=== PATIENT | male | born 1945 | race Two or more races ===

== ENCOUNTER 2017-09-16 14:07 | Inpatient (IN) | payer OTHER ==
[~2017-09-16] VITALS: Ht 157.5 cm; Wt 63.9 kg
[2017-09-16] MEDS ORDERED: TYLENOL REGULA325 MG PO (15:00)
[2017-09-16] MEDS ORDERED: ASPIR 8181 M1 PO (15:01)
[2017-09-16] MEDS ORDERED: NORVASC5 MG PO (15:01)
[2017-09-16] MEDS ORDERED: DULCOLAX10 MG PR (15:02)
[2017-09-16 15:04] VITALS: BP 134/65
[2017-09-16] MEDS ORDERED: CALCIUM ACETAT667 MG PO (15:04)
[2017-09-16] MEDS ORDERED: B-12500 MC1 SL (15:05)
[2017-09-16] MEDS ORDERED: COLACE100 MG PO (15:06)
[2017-09-16] MEDS ORDERED: LASIX20 MG PO (15:08)
[2017-09-16] MEDS ORDERED: HEPARIN SO5000 UNIT4 IV (15:10)
[2017-09-16] MEDS ORDERED: ZESTRIL10 MG PO (15:11)
[2017-09-16] MEDS ORDERED: LOPRESSOR25 MG PO (15:13)
[2017-09-16] MEDS ORDERED: NEPHROCAPS SOFTG1 MG PO (15:14)
[2017-09-16] MEDS ORDERED: PRAVACHOL80 MG PO (15:16)
[2017-09-16] MEDS ORDERED: FLOMAX0.4 MG PO (15:17)
[2017-09-16 21:00] VITALS: BP 153/68
[2017-09-17 00:06] VITALS: BP 157/80
[2017-09-17 07:02] LABS: HEMATOCRIT 27.5 % (38.0-50.0); HEMOGLOBIN 8.8 G/DL (12.5-16.6); MCH 32.1 PG (29.0-34.0); MCV 100.4 FL (86-99); PLATELET COUNT 256 K/uL (156-360); RBC DIS.WIDTH-CV 15.1 % (11.8-14.6); RBC DIS.WIDTH-SD 55.6 % (39-53); RED BLOOD COUNT 2.74 M/uL (4.00-5.50); WHITE BLOOD COUNT 11.2 K/uL (4.1-10.2)
[2017-09-17 07:05] VITALS: BP 165/86
[2017-09-17 07:29] LABS: CHLORIDE 95 MEQ/L (99-109); CREATININE 11.7 MG/DL (0.6-1.3); GFR ESTIMATE (CALCULATED) 5 mL/min/ (58.99-99999); GLUCOSE 102 mg/dL (70-99); MAGNESIUM 1.8 mg/dl (1.3-2.7); POTASSIUM 3.7 MEQ/L (3.7-5.4); SODIUM 133 MEQ/L (136-147); UREA NITROGEN (BUN) 91 mg/dL (9-23)
[2017-09-17 08:00] VITALS: BP 153/68
[2017-09-17 15:47] VITALS: BP 133/60
[2017-09-17 19:57] VITALS: BP 142/72
[2017-09-17 20:21] LABS: TYPE OF FLUID PD FLUID
[2017-09-17 20:36] LABS: APPEARANCE HAZY/YELLOW
[2017-09-17 21:06] LABS: BODY FLUID RBC'S 1550 /MM^3 (0-100); BODY FLUID WBC'S 515 /MM^3 (0-500)
[2017-09-17 21:14] LABS: BODY FLUID EOSINOPHILS 3 % (0-25); MONONUCLEAR WBC'S 9 %; POLYNUCLEAR WBC'S 88 % (0-25)
[2017-09-17 23:39] VITALS: BP 140/78
[2017-09-18 06:25] LABS: BASOPHIL (%) 0.3 % (0-1); EOSINOPHIL COUNT 0.5 K/uL (0-0.3); HEMATOCRIT 25.7 % (38.0-50.0); HEMOGLOBIN 8.2 G/DL (12.5-16.6); IMMATURE GRANULOCYTE (%) 0.3 % (0.0-0.7); LYMPHOCYTE (%) 12.2 % (15-42); LYMPHOCYTE COUNT 1.4 K/uL (1.0-2.8); MCH 31.3 PG (29.0-34.0); MCHC 31.9 G/DL (30.0-36.0); MCV 98.1 FL (86-99); MONOCYTE (%) 11.7 % (3-12); MONOCYTE COUNT 1.3 K/uL (0-0.8); NEUTROPHIL (%) 71.5 % (45-76); NEUTROPHIL COUNT 8.1 K/uL (1.8-6.4); PLATELET COUNT 232 K/uL (156-360); RBC DIS.WIDTH-CV 14.9 % (11.8-14.6); RBC DIS.WIDTH-SD 53.2 % (39-53); RED BLOOD COUNT 2.62 M/uL (4.00-5.50); WHITE BLOOD COUNT 11.3 K/uL (4.1-10.2)
[2017-09-18 07:00] LABS: CHLORIDE 95 MEQ/L (99-109); CREATININE 10.7 MG/DL (0.6-1.3); GFR ESTIMATE (CALCULATED) 5 mL/min/ (58.99-99999); GLUCOSE 138 mg/dL (70-99); POTASSIUM 3.1 MEQ/L (3.7-5.4); SODIUM 133 MEQ/L (136-147); UREA NITROGEN (BUN) 88 mg/dL (9-23)
[2017-09-18 07:16] LABS: VANCOMYCIN, TROUGH 12.7 MCG/ML (10-20)
[2017-09-18 07:45] VITALS: BP 142/62
[2017-09-18 15:47] VITALS: BP 168/76
[2017-09-18 18:00] LABS: TYPE OF FLUID PD FLUID
[2017-09-18 18:56] LABS: APPEARANCE CLEAR/COLORLESS
[2017-09-18 19:09] LABS: BODY FLUID RBC'S 145 /MM^3 (0-100); BODY FLUID WBC'S 81 /MM^3 (0-500)
[2017-09-18 19:20] LABS: BODY FLUID EOSINOPHILS 12 % (0-25); MONONUCLEAR WBC'S 7 %; POLYNUCLEAR WBC'S 81 % (0-25)
[2017-09-19 00:05] VITALS: BP 144/74
[2017-09-19 07:00] VITALS: BP 134/77
[2017-09-19 07:37] LABS: BASOPHIL (%) 0.4 % (0-1); BASOPHIL COUNT 0.1 K/uL (0-0.1); EOSINOPHIL (%) 3.4 % (0-5); EOSINOPHIL COUNT 0.4 K/uL (0-0.3); HEMATOCRIT 26.1 % (38.0-50.0); HEMOGLOBIN 8.1 G/DL (12.5-16.6); IMMATURE GRANULOCYTE (%) 0.5 % (0.0-0.7); LYMPHOCYTE (%) 11.4 % (15-42); LYMPHOCYTE COUNT 1.5 K/uL (1.0-2.8); MONOCYTE (%) 12.6 % (3-12); MONOCYTE COUNT 1.6 K/uL (0-0.8); NEUTROPHIL (%) 71.7 % (45-76); NEUTROPHIL COUNT 9.2 K/uL (1.8-6.4); PLATELET COUNT 249 K/uL (156-360); RBC DIS.WIDTH-CV 14.9 % (11.8-14.6); RBC DIS.WIDTH-SD 55.6 % (39-53); RED BLOOD COUNT 2.61 M/uL (4.00-5.50); WHITE BLOOD COUNT 12.8 K/uL (4.1-10.2)
[2017-09-19 08:02] LABS: CHLORIDE 97 MEQ/L (99-109); CREATININE 10.6 MG/DL (0.6-1.3); GFR ESTIMATE (CALCULATED) 5 mL/min/ (58.99-99999); GLUCOSE 134 mg/dL (70-99); POTASSIUM 3.7 MEQ/L (3.7-5.4); SODIUM 132 MEQ/L (136-147); UREA NITROGEN (BUN) 74 mg/dL (9-23)
[2017-09-19 15:27] VITALS: BP 170/77
[2017-09-19 19:55] VITALS: BP 172/78
[2017-09-19 23:23] VITALS: BP 130/60
[2017-09-20 06:17] LABS: BASOPHIL (%) 0.5 % (0-1); BASOPHIL COUNT 0.1 K/uL (0-0.1); EOSINOPHIL (%) 3.1 % (0-5); EOSINOPHIL COUNT 0.4 K/uL (0-0.3); HEMATOCRIT 25.3 % (38.0-50.0); HEMOGLOBIN 7.8 G/DL (12.5-16.6); IMMATURE GRANULOCYTE (%) 0.7 % (0.0-0.7); LYMPHOCYTE (%) 7.7 % (15-42); MCH 31.2 PG (29.0-34.0); MCHC 30.8 G/DL (30.0-36.0); MCV 101.2 FL (86-99); MONOCYTE (%) 13.1 % (3-12); MONOCYTE COUNT 1.7 K/uL (0-0.8); NEUTROPHIL (%) 74.9 % (45-76); NEUTROPHIL COUNT 9.5 K/uL (1.8-6.4); PLATELET COUNT 243 K/uL (156-360); RBC DIS.WIDTH-SD 55.3 % (39-53); WHITE BLOOD COUNT 12.7 K/uL (4.1-10.2)
[2017-09-20 06:48] LABS: CHLORIDE 96 MEQ/L (99-109); CREATININE 12.1 MG/DL (0.6-1.3); GFR ESTIMATE (CALCULATED) 4 mL/min/ (58.99-99999); POTASSIUM 4.4 MEQ/L (3.7-5.4); SODIUM 133 MEQ/L (136-147); UREA NITROGEN (BUN) 82 mg/dL (9-23)
[2017-09-20 06:51] LABS: GLUCOSE 85 mg/dL (70-99)
[2017-09-20 10:28] LABS: HEPATITIS B SURFACE ANTIGEN Nonreactive
[2017-09-20 10:40] LABS: HEPATITIS B SURFACE ANTIBODY REACTIVE
[2017-09-20 16:00] VITALS: BP 120/62
[2017-09-20 17:22] VITALS: BP 137/64
[2017-09-20 22:37] VITALS: BP 123/57
[2017-09-21 06:50] VITALS: BP 139/63
[2017-09-21 15:41] VITALS: BP 138/63
[2017-09-21 22:36] VITALS: BP 128/64
[2017-09-22 06:30] LABS: IRON 88 MCG/DL (35-150); TRANSFERRIN (TIBC) 110.1 mg/dL (215-380); TRANSFERRIN SATUR. 80 % (20-55)
[2017-09-22 06:50] VITALS: BP 139/66
[2017-09-22 15:24] VITALS: BP 152/70
[2017-09-22 23:59] VITALS: BP 164/73
[2017-09-23 08:14] VITALS: BP 153/74
[2017-09-23 08:15] LABS: BASOPHIL (%) 0.5 % (0-1); BASOPHIL COUNT 0.1 K/uL (0-0.1); EOSINOPHIL (%) 0.9 % (0-5); EOSINOPHIL COUNT 0.1 K/uL (0-0.3); HEMATOCRIT 27.2 % (38.0-50.0); HEMOGLOBIN 8.2 G/DL (12.5-16.6); IMMATURE GRANULOCYTE (%) 1.7 % (0.0-0.7); LYMPHOCYTE (%) 12.7 % (15-42); LYMPHOCYTE COUNT 1.7 K/uL (1.0-2.8); MCH 31.2 PG (29.0-34.0); MCHC 30.1 G/DL (30.0-36.0); MCV 103.4 FL (86-99); MONOCYTE (%) 13.2 % (3-12); MONOCYTE COUNT 1.7 K/uL (0-0.8); NEUTROPHIL COUNT 9.3 K/uL (1.8-6.4); NRBC (%) 0.2 /100 WBC (0-0); PLATELET COUNT 308 K/uL (156-360); RBC DIS.WIDTH-CV 15.3 % (11.8-14.6); RBC DIS.WIDTH-SD 57.1 % (39-53); RED BLOOD COUNT 2.63 M/uL (4.00-5.50); WHITE BLOOD COUNT 13.1 K/uL (4.1-10.2)
[2017-09-23 08:55] LABS: ALBUMIN 2.7 G/DL (3.2-4.8); CHLORIDE 99 MEQ/L (99-109); CREATININE 12.8 MG/DL (0.6-1.3); GFR ESTIMATE (CALCULATED) 4 mL/min/ (58.99-99999); GLUCOSE 152 mg/dL (70-99); POTASSIUM 4.7 MEQ/L (3.7-5.4); SODIUM 136 MEQ/L (136-147); UREA NITROGEN (BUN) 74 mg/dL (9-23)
[2017-09-23 16:11] VITALS: BP 181/81
[2017-09-23 22:06] VITALS: BP 184/79
[2017-09-24 00:26] VITALS: BP 139/79
[2017-09-24 07:17] VITALS: BP 166/80
[2017-09-24 08:51] LABS: HEMATOCRIT 30.7 % (38.0-50.0); MCH 30.7 PG (29.0-34.0); MCHC 29.3 G/DL (30.0-36.0); MCV 104.8 FL (86-99); NRBC (%) 0.5 /100 WBC (0-0); PLATELET COUNT 296 K/uL (156-360); RBC DIS.WIDTH-CV 15.6 % (11.8-14.6); RBC DIS.WIDTH-SD 57.5 % (39-53); RED BLOOD COUNT 2.93 M/uL (4.00-5.50); WHITE BLOOD COUNT 13.3 K/uL (4.1-10.2)
[2017-09-24 15:28] VITALS: BP 157/87
[2017-09-24 18:44] LABS: HEMATOCRIT 28.4 % (38.0-50.0); HEMOGLOBIN 8.6 G/DL (12.5-16.6); MCHC 30.3 G/DL (30.0-36.0); MCV 105.6 FL (86-99); NRBC (%) 0.4 /100 WBC (0-0); PLATELET COUNT 296 K/uL (156-360); RBC DIS.WIDTH-CV 15.9 % (11.8-14.6); RBC DIS.WIDTH-SD 56.9 % (39-53); RED BLOOD COUNT 2.69 M/uL (4.00-5.50); WHITE BLOOD COUNT 14.5 K/uL (4.1-10.2)
[2017-09-24 18:51] LABS: BASE EXCESS 4.9 mEq/L (-3 to +3); BICARBONATE 29.2 mEq/L (22-26); CARBOXY HGB 0.9 % (0-5); METHEMOGLOBIN 1.2 % (0-1.5); PCO2 41 mm Hg (35-45); pH 7.46 (7.35-7.45)
[2017-09-24 18:52] LABS: COMMENTS - BLOOD GASES A+C+; DEVICE NC; O2 FLOW 4 L/MIN; SITE LR; TOTAL RESP RATE 22 resp/min
[2017-09-24 18:55] LABS: CHLORIDE 100 MEQ/L (99-109); SODIUM 139 MEQ/L (136-147)
[2017-09-24 19:00] VITALS: BP 145/95
[2017-09-24 19:18] LABS: TROP-I INTERPRETATION POSITIVE
[2017-09-24 19:25] LABS: GFR ESTIMATE (CALCULATED) 6 mL/min/ (58.99-99999); GLUCOSE 134 mg/dL (70-99); UREA NITROGEN (BUN) 50 mg/dL (9-23)
[2017-09-24 19:27] LABS: CREATININE 9.3 MG/DL (0.6-1.3)
[2017-09-24 19:55] LABS: TROPONIN-I 5.59 ng/mL (0.0-0.30)
[2017-09-24] MEDS ORDERED: PLAVIX75 MG PO (20:22)
[2017-09-24 22:00] VITALS: BP 164/73
[2017-09-24 22:26] LABS: INTER. NORMALIZED RATIO 1.3
[2017-09-24 22:29] LABS: PTT 27.8 SEC (25-37)
[2017-09-25] VITALS: BP 157/98
[2017-09-25 04:00] VITALS: BP 136/70
[2017-09-25 05:32] LABS: BASOPHIL (%) 0.2 % (0-1); EOSINOPHIL (%) 0 % (0-5); HEMATOCRIT 29.2 % (38.0-50.0); HEMOGLOBIN 8.7 G/DL (12.5-16.6); IMMATURE GRANULOCYTE (%) 2.6 % (0.0-0.7); LYMPHOCYTE COUNT 0.7 K/uL (1.0-2.8); MCH 31.6 PG (29.0-34.0); MCHC 29.8 G/DL (30.0-36.0); MCV 106.2 FL (86-99); MONOCYTE (%) 2.5 % (3-12); MONOCYTE COUNT 0.3 K/uL (0-0.8); NEUTROPHIL (%) 89.7 % (45-76); NEUTROPHIL COUNT 11.9 K/uL (1.8-6.4); NRBC (%) 0.7 /100 WBC (0-0); PLATELET COUNT 295 K/uL (156-360); RBC DIS.WIDTH-CV 16.5 % (11.8-14.6); RBC DIS.WIDTH-SD 58.5 % (39-53); RED BLOOD COUNT 2.75 M/uL (4.00-5.50); WHITE BLOOD COUNT 13.3 K/uL (4.1-10.2)
[2017-09-25 05:55] LABS: TROP-I INTERPRETATION POSITIVE; TROPONIN-I 5.36 ng/mL (0.0-0.30)
[2017-09-25 06:00] LABS: ALBUMIN 2.8 G/DL (3.2-4.8); CHLORIDE 100 MEQ/L (99-109); GFR ESTIMATE (CALCULATED) 5 mL/min/ (58.99-99999); GLUCOSE 136 mg/dL (70-99); PHOSPHORUS 4.5 mg/dL (2.5-4.9); POTASSIUM 5.6 MEQ/L (3.7-5.4); SODIUM 139 MEQ/L (136-147); UREA NITROGEN (BUN) 55 mg/dL (9-23)
[2017-09-25 06:01] LABS: CREATININE 10.9 MG/DL (0.6-1.3)
[2017-09-25 08:00] VITALS: BP 170/77
[2017-09-25 11:48] LABS: TROP-I INTERPRETATION POSITIVE; TROPONIN-I 5.62 ng/mL (0.0-0.30)
[2017-09-25 13:00] VITALS: BP 139/62
[2017-09-25 16:36] VITALS: BP 146/74
[2017-09-25 19:01] LABS: HEMATOCRIT 35.8 % (38.0-50.0); HEMOGLOBIN 10.9 G/DL (12.5-16.6); MCV 101.7 FL (86-99)
[2017-09-25 20:00] VITALS: BP 140/78
[2017-09-26] VITALS (8 sets, daily range): BP systolic 117–172; BP diastolic 68–110
[2017-09-26 09:40] LABS: BASOPHIL (%) 0.5 % (0-1); BASOPHIL COUNT 0.1 K/uL (0-0.1); EOSINOPHIL (%) 0.7 % (0-5); EOSINOPHIL COUNT 0.2 K/uL (0-0.3); HEMATOCRIT 34.7 % (38.0-50.0); HEMOGLOBIN 10.5 G/DL (12.5-16.6); IMMATURE GRANULOCYTE (%) 2.7 % (0.0-0.7); MCH 31.3 PG (29.0-34.0); MCHC 30.3 G/DL (30.0-36.0); MCV 103.6 FL (86-99); MONOCYTE (%) 11.1 % (3-12); MONOCYTE COUNT 2.4 K/uL (0-0.8); NEUTROPHIL COUNT 15.3 K/uL (1.8-6.4); NRBC (%) 0.4 /100 WBC (0-0); PLATELET COUNT 317 K/uL (156-360); RBC DIS.WIDTH-SD 67.1 % (39-53); WHITE BLOOD COUNT 21.6 K/uL (4.1-10.2)
[2017-09-26 09:41] LABS: RED BLOOD COUNT 3.35 M/uL (4.00-5.50)
[2017-09-26 10:02] LABS: TROP-I INTERPRETATION POSITIVE; TROPONIN-I 7.38 ng/mL (0.0-0.30)
[2017-09-26 11:06] LABS: CHLORIDE 96 MEQ/L (99-109); GLUCOSE 105 mg/dL (70-99); SODIUM 134 MEQ/L (136-147); UREA NITROGEN (BUN) 42 mg/dL (9-23)
[2017-09-26 11:07] LABS: CREATININE 8.1 MG/DL (0.6-1.3); GFR ESTIMATE (CALCULATED) 7 mL/min/ (58.99-99999); POTASSIUM 4.3 MEQ/L (3.7-5.4)
[2017-09-27] VITALS: BP 125/84
[2017-09-27 04:00] VITALS: BP 155/78
[2017-09-27 04:29] LABS: HEMATOCRIT 31.5 % (38.0-50.0); HEMOGLOBIN 9.9 G/DL (12.5-16.6); MCH 31.9 PG (29.0-34.0); MCHC 31.4 G/DL (30.0-36.0); MCV 101.6 FL (86-99); NRBC (%) 0.5 /100 WBC (0-0); PLATELET COUNT 295 K/uL (156-360); RBC DIS.WIDTH-CV 19.9 % (11.8-14.6); RBC DIS.WIDTH-SD 64.2 % (39-53); WHITE BLOOD COUNT 18.3 K/uL (4.1-10.2)
[2017-09-27 04:47] LABS: TROP-I INTERPRETATION POSITIVE
[2017-09-27 04:49] LABS: TROPONIN-I 6.79 ng/mL (0.0-0.30)
[2017-09-27 06:59] LABS: BASOPHIL (%) 0.4 % (0-1); BASOPHIL COUNT 0.1 K/uL (0-0.1); EOSINOPHIL (%) 1.1 % (0-5); EOSINOPHIL COUNT 0.2 K/uL (0-0.3); IMMATURE GRANULOCYTE (%) 2.7 % (0.0-0.7); LYMPHOCYTE (%) 13.6 % (15-42); LYMPHOCYTE COUNT 2.5 K/uL (1.0-2.8); MONOCYTE (%) 11.7 % (3-12); MONOCYTE COUNT 2.1 K/uL (0-0.8); NEUTROPHIL (%) 70.5 % (45-76); NEUTROPHIL COUNT 12.7 K/uL (1.8-6.4)
[2017-09-27 07:00] VITALS: BP 155/78
[2017-09-27 07:22] LABS: ALBUMIN 2.8 G/DL (3.2-4.8); CHLORIDE 100 MEQ/L (99-109); CREATININE 9.6 MG/DL (0.6-1.3); GFR ESTIMATE (CALCULATED) 6 mL/min/ (58.99-99999); GLUCOSE 121 mg/dL (70-99); PHOSPHORUS 3.5 mg/dL (2.5-4.9); POTASSIUM 4.7 MEQ/L (3.7-5.4); SODIUM 137 MEQ/L (136-147); UREA NITROGEN (BUN) 53 mg/dL (9-23)
[2017-09-27 12:27] VITALS: BP 158/73
[2017-09-27 13:26] LABS: INTER. NORMALIZED RATIO 1.1
[2017-09-27 13:28] LABS: PTT 63.2 SEC (25-37)
[2017-09-27 16:00] VITALS: BP 138/70
[2017-09-27 20:00] VITALS: BP 134/61
[2017-09-28] VITALS (7 sets, daily range): BP systolic 138–183; BP diastolic 50–79
[2017-09-29 04:00] VITALS: BP 154/71
[2017-09-29 05:20] LABS: ALBUMIN 2.8 g/dL (3.2-4.8)
[2017-09-29 05:21] LABS: CHLORIDE 103 mEq/L (99-109); POTASSIUM 4.6 mEq/L (3.7-5.4); SODIUM 138 mEq/L (136-147)
[2017-09-29 05:25] LABS: GLUCOSE 89 mg/dL (70-99)
[2017-09-29 05:26] LABS: CREATININE 9.3 mg/dL (0.6-1.3); GFR ESTIMATE (CALCULATED) 6 mL/min/ (58.99-99999); PHOSPHORUS 3.4 mg/dL (2.5-4.9)
[2017-09-29 05:27] LABS: UREA NITROGEN (BUN) 41 mg/dL (9-23)
[2017-09-29 07:30] VITALS: BP 153/72
[2017-09-29 11:37] VITALS: BP 156/72
[2017-09-29 15:12] VITALS: BP 143/66
[2017-09-29 19:08] VITALS: BP 153/67
[2017-09-30 00:48] VITALS: BP 162/71
[2017-09-30 04:12] VITALS: BP 163/72
[2017-09-30 05:31] LABS: HEMOGLOBIN 10.8 G/DL (12.5-16.6); MCH 30.9 PG (29.0-34.0); MCV 103.2 FL (86-99); NRBC (%) 0.4 /100 WBC (0-0); PLATELET COUNT 282 K/uL (156-360); RBC DIS.WIDTH-CV 20.2 % (11.8-14.6); RBC DIS.WIDTH-SD 75.9 % (39-53); RED BLOOD COUNT 3.49 M/uL (4.00-5.50); WHITE BLOOD COUNT 14.2 K/uL (4.1-10.2)
[2017-09-30 07:32] LABS: ALBUMIN 2.7 G/DL (3.2-4.8); CHLORIDE 100 MEQ/L (99-109); GFR ESTIMATE (CALCULATED) 5 mL/min/ (58.99-99999); GLUCOSE 90 mg/dL (70-99); PHOSPHORUS 3.5 mg/dL (2.5-4.9); POTASSIUM 4.7 MEQ/L (3.7-5.4); SODIUM 137 MEQ/L (136-147); UREA NITROGEN (BUN) 49 mg/dL (9-23)
[2017-09-30 07:33] LABS: CREATININE 11.1 MG/DL (0.6-1.3)
[2017-09-30 08:00] VITALS: BP 160/70
[2017-09-30 10:02] LABS: INTER. NORMALIZED RATIO 1.1
[2017-09-30 10:10] LABS: PTT 28.9 SEC (25-37)
[2017-09-30 10:44] LABS: CHLORIDE 100 MEQ/L (99-109); GFR ESTIMATE (CALCULATED) 5 mL/min/ (58.99-99999); GLUCOSE 94 mg/dL (70-99); POTASSIUM 4.6 MEQ/L (3.7-5.4); SODIUM 138 MEQ/L (136-147); UREA NITROGEN (BUN) 49 mg/dL (9-23)
[2017-09-30 11:31] VITALS: BP 162/69
[2017-09-30 20:27] VITALS: BP 150/67
[2017-09-30 23:48] VITALS: BP 150/70
[2017-10-01 04:16] VITALS: BP 168/74
[2017-10-01 06:09] LABS: ALBUMIN 2.7 G/DL (3.2-4.8); CHLORIDE 101 MEQ/L (99-109); CREATININE 13.1 MG/DL (0.6-1.3); GFR ESTIMATE (CALCULATED) 4 mL/min/ (58.99-99999); GLUCOSE 69 mg/dL (70-99); PHOSPHORUS 4.6 mg/dL (2.5-4.9); POTASSIUM 5.3 MEQ/L (3.7-5.4); SODIUM 138 MEQ/L (136-147); UREA NITROGEN (BUN) 57 mg/dL (9-23)
[2017-10-01 07:11] VITALS: BP 159/71
[2017-10-01 07:50] LABS: HEMATOCRIT 33.2 % (38.0-50.0); HEMOGLOBIN 10.3 G/DL (12.5-16.6); MCH 32.1 PG (29.0-34.0); MCV 103.4 FL (86-99); PLATELET COUNT 265 K/uL (156-360); RBC DIS.WIDTH-CV 20.2 % (11.8-14.6); RBC DIS.WIDTH-SD 76.4 % (39-53); RED BLOOD COUNT 3.21 M/uL (4.00-5.50); WHITE BLOOD COUNT 10.5 K/uL (4.1-10.2)
[2017-10-01 08:06] LABS: BASOPHIL (%) 0.8 % (0-1); BASOPHIL COUNT 0.1 K/uL (0-0.1); EOSINOPHIL (%) 2.1 % (0-5); EOSINOPHIL COUNT 0.2 K/uL (0-0.3); IMMATURE GRANULOCYTE (%) 0.8 % (0.0-0.7); LYMPHOCYTE (%) 17.2 % (15-42); LYMPHOCYTE COUNT 1.8 K/uL (1.0-2.8); MONOCYTE (%) 11.9 % (3-12); MONOCYTE COUNT 1.3 K/uL (0-0.8); NEUTROPHIL (%) 67.2 % (45-76); NEUTROPHIL COUNT 7.1 K/uL (1.8-6.4)
[2017-10-01] MEDS ORDERED: AMLODIPINE BESY10 MG PO (11:38)
[2017-10-01] MEDS ORDERED: AUGMENTIN500 MG PO (11:38)
[2017-10-01] MEDS ORDERED: LOPRESSOR50 MG PO (11:38)
[2017-10-01 11:44] VITALS: BP 139/67
== END 2017-10-01 16:55 | disposition home health service (06) | DRG 981 ==
LOC: SDC 14:07 → 2SOUTH 18:26 → 4EAST 18:26 → 5EAST 18:26 → ENRESERV 18:27 → 5EAST 19:57 → ENRESERV 09-24 18:49 → 4WEST 09-24 18:57 → ENRESERV 09-24 18:58 → 4WEST 09-24 18:59 → ENRESERV 09-28 09:51 → 4EAST 09-28 14:25
PROVIDERS: Family Medicine; Hospitalist; Internal Medicine Nephrology; Physician Assistant; Physician Assistant Medical; Surgery
PROC: 0WWG40Z Revision of Drainage Device in Peritoneal Cavity, Percutaneous Endoscopic Approach (ICD-10-PCS; principal; 2017-09-16)
PROC: 3E1M39Z Irrigation of Peritoneal Cavity using Dialysate, Percutaneous Approach (ICD-10-PCS; 2017-09-17)
PROC: 02HV33Z Insertion of Infusion Device into Superior Vena Cava, Percutaneous Approach (ICD-10-PCS; 2017-09-19)
PROC: 0WPG03Z Removal of Infusion Device from Peritoneal Cavity, Open Approach (ICD-10-PCS; 2017-09-19)
PROC: B5181ZA Fluoroscopy of Superior Vena Cava using Low Osmolar Contrast, Guidance (ICD-10-PCS; 2017-09-19)
PROC: B548ZZA Ultrasonography of Superior Vena Cava, Guidance (ICD-10-PCS; 2017-09-19)
PROC: 5A1D70Z Performance of Urinary Filtration, Intermittent, Less than 6 Hours Per Day (ICD-10-PCS; 2017-09-20)
PROC: 30233N1 Transfusion of Nonautologous Red Blood Cells into Peripheral Vein, Percutaneous Approach (ICD-10-PCS; 2017-09-25)
PROC: 4A023N7 Measurement of Cardiac Sampling and Pressure, Left Heart, Percutaneous Approach (ICD-10-PCS; 2017-09-30)
PROC: B2111ZZ Fluoroscopy of Multiple Coronary Arteries using Low Osmolar Contrast (ICD-10-PCS; 2017-09-30)
PROC: B3121ZZ Fluoroscopy of Left Subclavian Artery using Low Osmolar Contrast (ICD-10-PCS; 2017-09-30)
PROC: B2131ZZ Fluoroscopy of Multiple Coronary Artery Bypass Grafts using Low Osmolar Contrast (ICD-10-PCS; 2017-09-30)
PROC: B2181ZZ Fluoroscopy of Left Internal Mammary Bypass Graft using Low Osmolar Contrast (ICD-10-PCS; 2017-09-30)
PROC: B41F1ZZ Fluoroscopy of Right Lower Extremity Arteries using Low Osmolar Contrast (ICD-10-PCS; 2017-09-30)
DX: T85.71XA Infection and inflammatory reaction due to peritoneal dialysis catheter, initial encounter (principal); K65.9 Peritonitis, unspecified; I21.A1 Myocardial infarction type 2; I50.21 Acute systolic (congestive) heart failure; T85.611A Breakdown (mechanical) of intraperitoneal dialysis catheter, initial encounter; Y81.2 Prosthetic and other implants, materials and accessory general- and plastic-surgery devices associated with adverse incidents; Y83.8 Other surgical procedures as the cause of abnormal reaction of the patient, or of later complication, without mention of misadventure at the time of the procedure; J18.9 Pneumonia, unspecified organism; I82.C21 Chronic embolism and thrombosis of right internal jugular vein; I13.2 Hypertensive heart and chronic kidney disease with heart failure and with stage 5 chronic kidney disease, or end stage renal disease; N18.6 End stage renal disease; I27.20 Pulmonary hypertension, unspecified; R06.03 Acute respiratory distress; E87.6 Hypokalemia; E11.22 Type 2 diabetes mellitus with diabetic chronic kidney disease; D63.1 Anemia in chronic kidney disease; E78.00 Pure hypercholesterolemia, unspecified; I25.82 Chronic total occlusion of coronary artery; I25.10 Atherosclerotic heart disease of native coronary artery without angina pectoris; I25.5 Ischemic cardiomyopathy; B95.7 Other staphylococcus as the cause of diseases classified elsewhere; B96.89 Other specified bacterial agents as the cause of diseases classified elsewhere; Y95 Nosocomial condition; Z53.20 Procedure and treatment not carried out because of patient's decision for unspecified reasons; I25.2 Old myocardial infarction; Z95.1 Presence of aortocoronary bypass graft; Z95.5 Presence of coronary angioplasty implant and graft; Z99.2 Dependence on renal dialysis; Z87.442 Personal history of urinary calculi; Z79.02 Long term (current) use of antithrombotics/antiplatelets; Z79.82 Long term (current) use of aspirin
CPT/HCPCS: 36600; 70450; 71045; 74018; 80048; 80048 91; 80069; 80202; 82565; 82803; 82948; 83540; 83605; 83735; 84100; 84145 90; 84466; 84484; 85014; 85018; 85025; 85027; 85379; 85610; 85730; 86706; 86850; 86900; 86901; 86920; 87040; 87070; 87075; 87077; 87186; 87205; 87340; 87641; 89051; 93005; 93306; 94640; 94640 76; 94799; 99202; C1769; C1887; C1894; J0131; J0330; J0690; J0692; J0744; J0881; J1200; J1644; J1756; J1940; J2250; J2270; J2405; J2543; J2710; J2930; J3010; J3370; J7030; J7050; P9016; S0020

== ENCOUNTER 2017-12-27 10:18 | Day surgery (SDC) | payer OTHER ==
[2017-12-27] VITALS (7 sets, daily range): BP systolic 128–201; BP diastolic 60–84
[~2017-12-27] VITALS: Ht 160 cm; Wt 58.0 kg
[~2017-12-27 10:18] MED LIST: AMLODIPINE BESY10 MG PO; ASPIR 8181 M1 PO; AUGMENTIN500 MG PO; B-12500 MC1 SL; CALCIUM ACETAT667 MG PO; COLACE100 MG PO; DULCOLAX10 MG PR; FLOMAX0.4 MG PO; HEPARIN SO5000 UNIT4 IV; LASIX20 MG PO; LIPITOR20 MG PO; LOPRESSOR25 MG PO; LOPRESSOR50 MG PO; NEPHROCAPS SOFTG1 MG PO; NORVASC5 MG PO; PLAVIX75 MG PO; TYLENOL REGULA325 MG PO; ZESTRIL10 MG PO
[2017-12-27 10:56] LABS: HEMOGLOBIN 11.9 G/DL (12.5-16.6); MCH 32.4 PG (29.0-34.0); MCHC 31.3 G/DL (30.0-36.0); MCV 103.5 FL (86-99); PLATELET COUNT 300 K/uL (156-360); RBC DIS.WIDTH-CV 16.9 % (11.8-14.6); RBC DIS.WIDTH-SD 62.1 % (39-53); RED BLOOD COUNT 3.67 M/uL (4.00-5.50); WHITE BLOOD COUNT 14.7 K/uL (4.1-10.2)
[2017-12-27] MEDS ORDERED: RENAGEL800 MG PO (11:11)
[2017-12-27] MEDS ORDERED: SENSIPAR30 MG PO (11:12)
[2017-12-27 11:22] LABS: CHLORIDE 87 MEQ/L (99-109); CREATININE 9.1 MG/DL (0.6-1.3); GFR ESTIMATE (CALCULATED) 6 mL/min/ (58.99-99999); GLUCOSE 93 mg/dL (70-99); POTASSIUM 4.5 MEQ/L (3.7-5.4); SODIUM 134 MEQ/L (136-147); UREA NITROGEN (BUN) 80 mg/dL (9-23)
[2017-12-27] MEDS ORDERED: NORCO 5/3251 TABLET PO (14:26)
== END 2017-12-27 19:20 | disposition home or self-care (01) ==
LOC: SDC 10:18
PROVIDERS: Surgery
PROC: 0WHG43Z Insertion of Infusion Device into Peritoneal Cavity, Percutaneous Endoscopic Approach (ICD-10-PCS; principal; 2017-12-27)
DX: I13.2 Hypertensive heart and chronic kidney disease with heart failure and with stage 5 chronic kidney disease, or end stage renal disease (principal); I50.9 Heart failure, unspecified; N18.6 End stage renal disease; Z99.2 Dependence on renal dialysis; Z86.19 Personal history of other infectious and parasitic diseases; E78.5 Hyperlipidemia, unspecified; M19.90 Unspecified osteoarthritis, unspecified site; D64.9 Anemia, unspecified; F41.1 Generalized anxiety disorder; I25.10 Atherosclerotic heart disease of native coronary artery without angina pectoris; I25.2 Old myocardial infarction; Z95.1 Presence of aortocoronary bypass graft; Z95.5 Presence of coronary angioplasty implant and graft; Z79.82 Long term (current) use of aspirin; Z82.49 Family history of ischemic heart disease and other diseases of the circulatory system; Z82.5 Family history of asthma and other chronic lower respiratory diseases
CPT/HCPCS: 80048; 85027; 87641; C1750; J0131; J0690; J1170; J3010; S0020